=== PATIENT | female | born 1960 | race Caucasian/White ===

== ENCOUNTER 2022-02-15 11:04 | Emergency (ER) | payer SELFPAY ==
[2022-02-15] MEDS ORDERED: METHYLPREDNISOLONE 125 MG INJ ONE (11:28)
[2022-02-15] MEDS ORDERED: LEVALBUTEROL 1.25 MG/3 ML NEB ONE (11:28)
[2022-02-15] MEDS ORDERED: NA CHLORIDE 0.9% 500 ML ONE ×2 (11:29→14:51)
[2022-02-15 11:33] LABS: Absolute Lymphocytes (CBC) 1.7 K/uL (0.7-4.9); Hematocrit 46.2 % (36.0-45.0); Lymphocytes % 11.5 % (15.3-44.8); MCV 99.9 fL (80-100); MPV 7.2 fL (7.6-11.3); RBC Red Blood Cell Count 4.63 M/uL (3.86-4.86)
[2022-02-15 11:41] LABS: Protime INR 1.1
[2022-02-15 11:51] LABS: Potassium 4.1 mmol/L (3.5-5.1); Troponin High Sensitivity 4.3 pg/mL (<58.9)
[2022-02-15 11:55] LABS: Albumin 3.8 g/dL (3.4-5.0); Bilirubin Direct 0.2 mg/dL (0-0.2); Bilirubin Total 0.6 mg/dL (0.2-1.0); Protein, Total 7.9 g/dL (6.4-8.2)
[2022-02-15] MEDS ORDERED: CEFTRIAXONE 1000 MG/VIAL ONE (12:32)
[2022-02-15] MEDS ORDERED: NA CHLORIDE 0.9% 50 ML ONE (12:32)
[2022-02-15] MEDS ORDERED: AZITHROMYCIN 500 MG INJ IVPB ONE (12:32)
[2022-02-15] MEDS ORDERED: NA CHLORIDE 0.9% 250 ML ONE (12:32)
[2022-02-15] MEDS ORDERED: ACETAMINOPHEN 500 MG TAB ONE (12:41)
--- NOTE | 2022-02-15 12:53 | RAD REPORT ---
EXAM DESCRIPTION: RAD - Chest Single View - 02/15/2022 11:54 am CLINICAL HISTORY: Chest pain Chest pain. COMPARISON: No comparisons FINDINGS: Portable technique limits examination quality. The lungs are emphysematous but grossly clear. Pleural scarring is seen right apex. The heart is norm al in size. No displaced fractures.
--- NOTE | 2022-02-15 14:40 | EDPHYS ---
Physician Documentation [facility] Name: Laila Lusi Age: 61 yrs Sex: Female : 1960 Arrival Date: 02/15/2022 Time: 11:04 Bed 3 Private MD: ED Physician Lukas Mcdaniel HPI: 02/15 14:06 This 61 yrs old Female presents to ER via Ambulatory with complaints of Chest rn Tightness, Shortness Of Breath. Historical: - Allergies: 11:12 No Known Allergies; bm7 - Home Meds: 11:12 None [Active]; bm7 - PMHx: 11:12 None; bm7 - PSHx: 11:12 hysterectomy; bm7 - Immunization history:: Adult Immunizations up to date, Client reports receiving the 2nd dose of the Covid vaccine, Client reports receiving the 1st dose of the Covid vaccine. - Social history:: Smoking status: Patient reports the use of cigarette tobacco products, smokes one-half pack cigarettes per day. - Family history:: not pertinent. - Hospitalizations: : No recent hospitalization is reported. ROS: 14:14 Constitutional: Negative for fever, chills, and weight loss, Eyes: Negative for injury, rn pain, redness, and discharge, Neck: Negative for injury, pain, and swelling, Cardiovascular: + chest tightness with breathing Respiratory: + sob and cough Abdomen/GI: Negative for abdominal pain, nausea, vomiting, diarrhea, and constipation, MS/Extremity: Negative for injury and deformity, Skin: Negative for injury, rash, and discoloration, Neuro: Negative for headache, weakness, numbness, tingling, and seizure. Exam: 13:47 ECG was reviewed by the Attending Physician. rn 14:14 Constitutional: This is a well developed, well nourished patient who is awake, alert, rn + mild tachypnea Head/Face: Normocephalic, atraumatic. Eyes: Periorbital areas with no swelling, redness, or edema. Cardiovascular: Regular rate and rhythm. No pulse deficits. Respiratory: Mild tachypnea, no retractions, faint wheezing bilaterally Abdomen/GI: Soft, non-tender Skin: Warm, dry MS/ Extremity: Pulses equal, no cyanosis. Neuro: Awake and alert, GCS 15 Vital Signs: 11:13 BP 116 / 95; Pulse 105; Resp 24; Temp 98.7(O); Pulse Ox 96% on R/A; Weight 45.36 kg bm7 (R); Height 5 ft. 1 in. (154.94 cm); Pain 7/10; 12:00 BP 123 / 71; Pulse 100; Resp 24; Pulse Ox 97% ; mb8 12:43 BP 110 / 44; Pulse 101; Resp 14; Pulse Ox 94% ; Pain 5/10; mb8 13:25 BP 105 / 62; Pulse 92; Resp 16; Pulse Ox 97% ; Pain 3/10; mb8 15:32 BP 123 / 88; Pulse 86; mb8 11:13 Body Mass Index 18.89 (45.36 kg, 154.94 cm) bm7 MDM: 11:08 Patient medically screened. rn 14:35 Differential diagnosis: acute myocardial infarction, acute pericarditis, anxiety, rn coronary artery disease congestive heart failure pleurisy, pneumonia, pneumothorax, pulmonary embolus, stable angina, COPD. Data reviewed: vital signs, nurses notes, lab test result(s), EKG, radiologic studies, plain films, and as a result, I will discharge patient. Counseling: I had a detailed discussion with the patient and/or guardian regarding: the historical points, exam findings, and any diagnostic results supporting the discharge/admit diagnosis, lab results, radiology results, the need for outpatient follow up, to return to the emergency department if symptoms worsen or persist or if there are any questions or concerns that arise at home. Response to treatment: the patient's symptoms have markedly improved after treatment, and as a result, I will discharge patient. Special discussion: Based on the history and exam findings, there is no indication for further emergent testing or inpatient evaluation. I discussed with the patient/guardian the need to see the primary care provider for further evaluation of the symptoms. I discussed with the patient/guardian the need to see the industrial automation engineer for further evaluation of the symptoms. ED course: Pt reports feels much better now, ambulatory to bathroom without difficulty or assistance, no oxygen requirement, recommended observation in hospital but patient would like to go home. Does not want to be admitted. Will dc home with abx/inhaler/steroids and recommend close pulmonology and pcp f/u. Return precautions given and understood. D-dimer neg. Trop neg.. 02/15 11:14 Order name: Basic Metabolic Panel; Complete Time: 12:02/15 11:14 Order name: CBC with Diff; Complete Time: 12:02/15 11:14 Order name: NT PRO-BNP; Complete Time: 12:02/15 11:14 Order name: Troponin HS; Complete Time: 12:02/15 11:20 Order name: Blood Culture Adult (2) 02/15 11:20 Order name: Lactate; Complete Time: 12:02/15 11:14 Order name: XRAY Chest (1 view); Complete Time: 13:14 02/15 11:20 Order name: Protime (+inr); Complete Time: 12:02/15 11:20 Order name: Ptt, Activated; Complete Time: 12:02/15 11:20 Order name: LFT's; Complete Time: 12:02/15 11:20 Order name: D-Dimer; Complete Time: 12:02/15 11:21 Order name: SARS-COV-2 RT PCR (Document "Date of Onset" if Symptomatic); Complete Time: rn 13:02/15 11:21 Order name: Flu; Complete Time: 13:02/15 11:14 Order name: EKG; Complete Time: 11:15 02/15 11:14 Order name: Cardiac monitoring; Complete Time: 02/15 11:14 Order name: EKG - Nurse/Tech; Complete Time: 11:46 02/15 11:14 Order name: IV Saline Lock; Complete Time: 02/15 11:14 Order name: Labs collected and sent; Complete Time: 12:02/15 11:14 Order name: O2 Per Protocol; Complete Time: 11:02/15 11:14 Order name: O2 Sat Monitoring; Complete Time: 11: rn EC:47 Rate is 101 beats/min. Rhythm is regular. Right axis deviation noted. QRS is positive rn in lead aVF and negative in lead I. [place] interval is normal. QRS interval is normal. QT interval is normal. No Q waves. T waves are Normal. No ST changes noted. Clinical impression: Sinus tachycardia. Interpreted by me. Reviewed by me. Administered Medications: 11:35 Drug: SOLU-Medrol (methylPrednisoLONE) 125 mg Route: IVP; Site: left antecubital; mb8 12:29 Follow up: Response: No adverse reaction mb8 11:35 Drug: Xopenex (levalbuterol) (3) 1.25 mg Route: Inhalation; mb8 12:28 Follow up: Response: No adverse reaction; Wheezing diminished mb8 11:35 Drug: NS 0.9% 500 ml Route: IV; Rate: bolus; Site: left antecubital; mb8 12:28 Follow up: Response: No adverse reaction; IV Status: Completed infusion mb8 12:39 Drug: Rocephin (cefTRIAXone) 1 grams Route: IV; Rate: calculated rate; Site: right mb8 forearm; 12:39 Drug: Zithromax (azithromycin) 500 mg Route: IVPB; Infused Over: 1 hrs; Site: left mb8 antecubital; 12:43 Drug: Tylenol 1000 mg Route: PO; mb8 14:57 Follow up: Response: No adverse reaction; Pain is decreased mb8 14:58 Drug: NS 0.9% 500 ml Route: IV; Rate: bolus; Site: left antecubital; mb8 Disposition Summary: 02/15/22 14:39 Discharge Ordered Location: Home rn Problem: new rn Symptoms: have improved rn Condition: Stable rn Diagnosis - Dyspnea, unspecified rn - Wheezing rn Followup: rn - With: Jarod Juarez MD - When: As needed - Reason: Recheck today's complaints, Re-evaluation by your physician Discharge Instructions: - Discharge Summary Sheet rn - Shortness of Breath, Adult rn Forms: - Medication Reconciliation Form rn - Thank You Letter rn - Antibiotic help desk internship - Prescription Opioid Use rn Prescriptions: - Prednisone 20 mg Oral Tablet - take 3 tablets by ORAL route once daily for 5 days; 15 tablet; Refills: 0, rn Product Selection Permitted - Zithromax Z-Zach 250 mg Oral Tablet - take 1 tablet by ORAL route as directed for 5 days Day 1 - take two (2) tablets rn one time. Day 2, 3, 4 , 5 take one (1) tablet once daily.; 6 tablet; Refills: 0, Product Selection Permitted - albuterol sulfate 90 mcg/actuation Inhalation HFA aerosol inhaler - inhale 2 puff by INHALATION route every 4-6 hours; 1 Pump; Refills: 0, Product rn Selection Permitted Signatures: Dispatcher [employer] Lukas Roca MD MD rn McCarthy, Brittany RN RN bm7 David Madrid RN RN mb8 Corrections: (The following items were deleted from the chart) 11:13 11:12 PSHx: None; elizabeth 7
--- NOTE | 2022-02-15 14:40 | ER ---
Nurse's Notes [facility] Name: Laila Luis Age: 61 yrs Sex: Female : 1960 Arrival Date: 02/15/2022 Time: 11:04 Bed 3 Private MD: Diagnosis: Dyspnea, unspecified;Wheezing Presentation: 02/15 11:11 Chief complaint: Patient states: Three days ago I started having chest pain and bm7 shortness of breath and it is just getting worse. Coronavirus screen: Client presents with at least one sign or symptom that may indicate coronavirus-19. Standard/surgical mask placed on the client. Ebola Screen: No symptoms or risks identified at this time. Initial Sepsis Screen: Does the patient meet any 2 criteria?. Onset of symptoms was February 12, 2022. 11:11 Method Of Arrival: Ambulatory 7 11:11 Acuity: SUZAN 2 bm7 11:14 Initial Sepsis Screen: Does the patient meet any 2 criteria? RR > 20 per min. HR > 90 bm7 bpm. Yes Does the patient have a suspected source of infection? Yes: Productive cough/pneumonia. Risk Assessment: Do you want to hurt yourself or someone else? Patient reports no desire to harm self or others. Triage Assessment: 11:14 General: Appears in no apparent distress. uncomfortable, Behavior is cooperative, bm7 anxious, crying. Pain: Complains of pain in chest. EENT: No deficits noted. No signs and/or symptoms were reported regarding the EENT system. Neuro: No deficits noted. Cardiovascular: Reports chest pain, shortness of breath, Capillary refill is > 3 seconds Patient's skin is warm and dry. Chest pain is described as diffuse. Respiratory: Airway is patent Respiratory effort is even, labored, using tripod position, Respiratory pattern is tachypnea. GI: No deficits noted. No signs and/or symptoms were reported involving the gastrointestinal system. : No deficits noted. No signs and/or symptoms were reported regarding the genitourinary system. Derm: No deficits noted. No signs and/or symptoms reported regarding the dermatologic system. Musculoskeletal: No deficits noted. No signs and/or symptoms reported regarding the musculoskeletal system. Historical: - Allergies: 11:12 No Known Allergies; bm7 - Home Meds: 11:12 None [Active]; bm7 - PMHx: 11:12 None; bm7 - PSHx: 11:12 hysterectomy; bm7 - Immunization history:: Adult Immunizations up to date, Client reports receiving the 2nd dose of the Covid vaccine, Client reports receiving the 1st dose of the Covid vaccine. - Social history:: Smoking status: Patient reports the use of cigarette tobacco products, smokes one-half pack cigarettes per day. - Family history:: not pertinent. - Hospitalizations: : No recent hospitalization is reported. Screenin:00 Abuse screen: Denies threats or abuse. Denies injuries from another. Nutritional mb8 screening: No deficits noted. Nutritional screening: No deficits noted. Tuberculosis screening: No symptoms or risk factors identified. Fall Risk No fall in past 12 months (0 pts). Secondary diagnosis (15 points) IV access (20 points). Ambulatory Aid- None/Bed Rest/Nurse Assist (0 pts). Gait- Normal/Bed Rest/Wheelchair (0 pts) Mental Status- Oriented to own ability (0 pts). Total Valle[place]illo Fall Scale indicates Low Risk Score (25-44 pts). Fall prevention measures have been instituted. Side Rails Up X 2 Family Present and informed to notify staff if they need to leave bedside As available Patient and Family Educated on Fall Prevention Program and strategies. Assessment: 11:25 Pain: Complains of pain in chest Pain does not radiate. Pain began. Respiratory: mb8 Reports shortness of breath air hunger labored breathing pain with cough Airway is patent Trachea midline Respiratory effort is labored, Respiratory pattern is tachypnea. 12:44 Reassessment: Patient and/or family updated on plan of care and expected duration. Pain mb8 level reassessed. Patient is alert, oriented x 3, equal unlabored respirations, skin warm/dry/pink. Patient c/o a CHENG rates it 5/10. 13:22 Reassessment: Patient and/or family updated on plan of care and expected duration. Pain mb8 level reassessed. Patient is alert, oriented x 3, equal unlabored respirations, skin warm/dry/pink. Vital Signs: 11:13 BP 116 / 95; Pulse 105; Resp 24; Temp 98.7(O); Pulse Ox 96% on R/A; Weight 45.36 kg bm7 (R); Height 5 ft. 1 in. (154.94 cm); Pain 7/10; 12:00 BP 123 / 71; Pulse 100; Resp 24; Pulse Ox 97% ; mb8 12:43 BP 110 / 44; Pulse 101; Resp 14; Pulse Ox 94% ; Pain 5/10; mb8 13:25 BP 105 / 62; Pulse 92; Resp 16; Pulse Ox 97% ; Pain 3/10; mb8 15:32 BP 123 / 88; Pulse 86; mb8 11:13 Body Mass Index 18.89 (45.36 kg, 154.94 cm) bm7 Vitals: 12:00 Cardiac Rhythm Assessment Sinus rhythm. mb8 13:25 Cardiac Rhythm Assessment Sinus rhythm. mb8 ED Course: 11:04 Patient arrived in ED. mr 11:08 Lukas Mcdaniel MD is Attending Physician. rn 11:12 Triage completed. bm7 11:13 Arm band placed on right wrist. bm7 11:16 David Madrid, DIANA is Primary Nurse. mb8 11:25 Patient has correct armband on for positive identification. Placed in gown. Bed in low mb8 position. Call light in reach. Side rails up X2. Client placed on continuous cardiac and pulse oximetry monitoring. NIBP monitoring applied. monitoring manager on. Pulse ox on. Door closed. Noise minimized. Warm blanket given. 11:28 First set of blood cultures drawn. Inserted saline lock: 18 gauge in left antecubital mb8 area, using aseptic technique. Blood collected. 11:50 Second set of blood cultures drawn COVID swab sent to lab. Flu and/or RSV swab sent to mb8 lab. Inserted saline lock: 20 gauge in right forearm, using aseptic technique. Blood collected. 11:55 XRAY Chest (1 view) In Process Unspecified. EDMS 12:01 No provider procedures requiring assistance completed. mb8 12:02 Patient maintains SpO2 saturation greater than 95% on room air. mb8 13:47 Patient requests rest room assistance. mb8 14:39 Jarod Juarez MD is Referral Physician. rn 15:33 IV discontinued, intact, bleeding controlled, No redness/swelling at site. Pressure mb8 dressing applied. Administered Medications: 11:35 Drug: SOLU-Medrol (methylPrednisoLONE) 125 mg Route: IVP; Site: left antecubital; mb8 12:29 Follow up: Response: No adverse reaction mb8 11:35 Drug: Xopenex (levalbuterol) (3) 1.25 mg Route: Inhalation; mb8 12:28 Follow up: Response: No adverse reaction; Wheezing diminished mb8 11:35 Drug: NS 0.9% 500 ml Route: IV; Rate: bolus; Site: left antecubital; mb8 12:28 Follow up: Response: No adverse reaction; IV Status: Completed infusion mb8 12:39 Drug: Rocephin (cefTRIAXone) 1 grams Route: IV; Rate: calculated rate; Site: right mb8 forearm; 12:39 Drug: Zithromax (azithromycin) 500 mg Route: IVPB; Infused Over: 1 hrs; Site: left mb8 antecubital; 12:43 Drug: Tylenol 1000 mg Route: PO; mb8 14:57 Follow up: Response: No adverse reaction; Pain is decreased mb8 14:58 Drug: NS 0.9% 500 ml Route: IV; Rate: bolus; Site: left antecubital; mb8 Medication: 12:00 VIS not applicable for this client. mb8 Outcome: 14:39 Discharge ordered by . rn 15:32 Discharged to home ambulatory. mb8 15:32 Condition: stable 15:32 Discharge instructions given to patient, Instructed on discharge instructions, follow up and referral plans. medication usage, Demonstrated understanding of instructions, follow-up care, medications, Prescriptions given X 3. 15:33 Patient left the ED. mb8 Signatures: Dispatcher [employer] [facility] Lencho Li McdanielLukas MD MD rn McCarthy, Brittany, RN RN 7 David Madrid RN RN mb8 Corrections: (The following items were deleted from the chart) 11:13 11:12 PSHx: None; bm7 bm7 12:45 12:43 Pulse 101bpm; Resp 14bpm; Pulse Ox 94%; Pain 5/10; mb8 mb8
--- NOTE | 2022-02-16 08:30 | EKG ---
Test Date: 2022-02-15 Test Time: 11:46:20 Third Rigger: BLADE MEASUREMENT RESULTS: Intervals: Rate: 101 DE: 112 QRSD: 64 QT: 348 QTc: 451 Christmas: P: 91 DE: 112 QRS: 97 T: 88 INTERPRETIVE STATEMENTS: Suspect arm lead reversal, interpretation assumes no reversal Sinus tachycardia Right atrial enlargement Rightward axis Pulmonary disease pattern Abnormal ECG No previous ECG available for comparison Electronically Signed On 02-16-22 08:26:49 CDT by Derik Parsons
[2022-02-17 08:20] VITALS: TEMP 98.7
[2022-02-17 08:38] VITALS: O2SAT 97
[2022-02-17 08:39] VITALS: BP 123/88
== END 2022-02-15 15:33 | disposition home or self-care (01) ==
LOC: ER 11:04
DX: R06.00 Dyspnea, unspecified (principal); R06.2 Wheezing; R07.89 Other chest pain; Z20.822 Contact with and (suspected) exposure to COVID-19; F17.210 Nicotine dependence, cigarettes, uncomplicated
CPT/HCPCS: 36415; 71045; 80048; 80076; 83605; 83880; 84484; 85025; 85379; 85610; 85730; 87040; 87804; 93005; 99285; J0456; J2930; J7040; J7050; J7614; U0003